=== PATIENT | male | born 1990 | race Two or more races ===

== ENCOUNTER 2024-08-15 14:04 | Emergency (ER) | payer MEDICAID, SELFPAY ==
[2024-08-15 14:06] VITALS: BMI 43.2
[2024-08-15 14:38] VITALS: BP 140/88; PULSE 93; RESP 16; TEMP 37; O2SAT 98
--- NOTE | 2024-08-15 14:59 | EDNOTE_ITS ---
<Statement entered by Isa Patrick MD - 08/26/24 19:23> As co-signing physician, I was present and available for consult prn. I concur with the plan and care as documented by the midlevel provider. ED Male Genitalurinary RME/HPI General Chief complaint: Urogenital-Male Stated complaint: Possible UTI Time Seen by Provider: 08/15/24 14:40 Arrival date/time: 08/15/24 14:04 This is a 33-year-old male that comes in with complaints of chunky urine last night. Patient reports that there was also some blood in his urine. Patient has some dysuria. Patient states he has only been with 1 sex partner. Patient denies any anal sex. 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 Related Data Home Medications ?Medication ?Instructions ?Recorded ?Confirmed clindamycin HCl 300 mg capsule 300 mg PO TID 07/01/19 07/01/19 hydrocodone 10 mg-acetaminophen 1 tab PO BID PRN Pain 07/01/19 07/01/19 325 mg tablet ([place]) Previous Rx's ?Medication ?Instructions ?Recorded albuterol sulfate 90 mcg/actuation 2 puff inhalation Q ID PRN 08/10/21 aerosol inhaler shortness of breath or wheez ing #8.5 grams azithromycin 250 mg tablet See Rx Instructions PO .COM PLEX #6 08/10/21 tabs ibuprofen 800 mg tablet 800 mg PO Q6H PRN pain #20 t abs 08/15/24 Allergies Allergy/AdvReac Type Severity Reaction Status Date / Time walnut Allergy Vomiting Verified 08/10/21 00:42 doxycycline AdvReac Mild NAUSEA,VOMI Verified 08/10/21 00:42 TING Review of Systems Review of Systems Systems Reviewed: All systems reviewed, normal except as documented Past Medical History Past Medical History NEUROLOGIC: Negative Neurological Disorders or Seizures CARDIAC: Negative Cardiac Disorders or Congestive Heart Failure RESPIRATORY: Negative Chronic Obstructive Pulmonary Disease (COPD) or Asthma GASTROINTESTINAL: Positive Gastrointestinal Disorders and Obesity; Negative Hepatitis GENITOURINARY: Negative Genitourinary Disorders or Renal Disease MUSCULOSKELETAL: Positive Musculoskeletal Disorders and Arthritis ENDOCRINE: Negative Endocrine Disorders, Diabetes Mellitus Type 1 or Diabetes Mellitus Type 2 HEMATOLOGIC: Positive Blood Disorders and Leukemia (2016 HOSP); Negative Sickle Cell Disease OTHER HISTORY: Positive Hospitalization ([facility] 2016), Chemotherapy (2016), MRSA ([facility]), Chicken Pox and Cancer ([facility]); Negative Autoimmune Disease, Shingles, Falls, Blood Transfusions, Blood Transfusion Reaction, Anesthesia Reactions, Radiation Therapy, Measles or Mumps Family History FAMILY HISTORY: Positive Family Cardiac Disorders (FATHER (CVA,MO,HTN)), Family Surgery (MOTHER) and Family Anesthesia Reaction (HARD TO BREATHE (MOTHER)); Negative Family Psychiatric Problems, Family Respiratory Disorders, Family Gastrointestinal Problems or Family Cancer Surgical History SURGICAL: Negative Cardiac Surgery or Abdominal Surgery Social History SMOKING STATUS: Current every day smoker Travel History EBOLA RISK: No ED Exam General General appearance: Present alert and in no apparent distress Head Head exam: Present atraumatic Eye Eye exam: Present normal appearance, PERRL and EOMI ENT ENT exam: Present normal exam, normal oropharynx and mucous membranes moist Neck Neck exam: Present normal inspection, full ROM and trachea midline Chest Chest inspection: Present normal inspection and symmetric chest wall rise Respiratory Respiratory exam: Present normal lung sounds bilaterally Cardiovascular Cardiovascular exam: Present regular rate, normal rhythm and normal heart sounds Abdominal Exam Abdominal exam: Present soft and normal bowel sounds Extremities Exam Extremities exam: Present normal inspection and full ROM Back Exam Back exam: Present normal inspection and full ROM Neurological Exam Neurological exam: Present alert, oriented X3 and CN II-XII intact Psychiatric Psychiatric exam: Present normal affect and normal mood Skin Skin exam: Present warm, dry, intact and normal color Course Quality Measures none Orders Category Date Time Status Chlamydia/GC/TV - PCR Stat Lab 08/15/24 15:05 Completed Urinalysis, C/S if Indicated Stat Lab 08/15/24 15:05 Completed Urine Culture Stat Lab 08/15/24 15:05 Completed Ketorolac Inj [Toradol Inj] Med 08/15/24 16:10 Discontinued 60 mg IM X1 ONE cefTRIAXone [Rocephin] 1,000 mg Med 08/15/24 16:11 Discontinued Lidocaine 1% 20 ml [Xylocaine 1% 20 ML] 2.1 ml IM X1 Vital Signs Vital signs: Vital Signs Temperature 98.6 F 08/15/24 14:38 Pulse Rate 93 08/15/24 14:38 Respiratory Rate 16 08/15/24 14:38 Blood Pressure 140/88 H 08/15/24 14:38 Pulse Oximetry (%) 98 08/15/24 14:38 Oxygen Delivery Method Room Air 08/15/24 14:38 Urogenital - Male MDM Narrative MDM Narrative:: Urine showed nitrites with white blood cells, leukocytes and a lot of red blood cells. I spoke to patient at length that he could also have a kidney stone. Will treat for UTI now. Will send for urine culture. Patient told to drink lots of fluids. Come back to the emergency room if symptoms change or worsen. Patient data External records reviewed:: [facility] previous records Clinical information provided by:: patient Social determinants that could affect healthcare access:: none Patient has the following chronic illnesses:: none How is presenting disease/condition affected by chronic disease/condition?: no chronic disease Evaluation data The following diagnostics were reviewed and interpreted by me:: lab results Lab and/or radiology exams considered but not ordered:: none Interpretation Summary: see note Medications / Prescriptions Medications or Prescriptions considered but not ordered:: none Medication administrations:: Medication Administration History Discontinued Medications Ceftriaxone Sodium 1,000 mg/ (Lidocaine HCl 2.1 ml) 0 mg IM X1 ONE Stop: 08/15/24 16:12 Last Admin: 08/15/24 16:24 Dose: 1,000 mg Documented By: DEMETRIO Comments: 2.1 ml lidocaine Ketorolac Tromethamine (Ketorolac Inj 60 Mg/2 Ml Vial) 60 mg IM X1 ONE Stop: 08/15/24 16:11 Last Admin: 08/15/24 16:24 Dose: 60 mg Documented By: DEMETRIO see [facility] Consultations Consultation(s) initiated? (list below): No Diagnosis Urogenital Male Differential Diagnosis: urinary tract infection, urethritis, epididymitis and other (kidney stone ) Most likely diagnosis given after review of the tests above:: uti Admission Indicated Admission indicated?: not indicated Admission Request Was there a request for admission?: No Disposition Plan Disposition Plan: Discharge Discharge Attestation Discharge Attestation: The patient and all family members were given an opportunity to ask questions and understood the discharge instructions. Discharge instructions specifically effects, indications for sooner follow up or return to the emergency department, and the expected course of current diagnosis. Patient condition: Stable Discharge Plan Plan Patient Disposition: HOME (Self Care) Patient condition on transfer: Stable Prescriptions/Referrals Prescriptions/Med Rec: New ibuprofen 800 mg tablet 800 mg PO Q6H PRN (Reason: pain) Qty: 20 0RF No Action clindamycin HCl 300 mg Capsule 300 mg PO TID hydrocodone-acetaminophen [[place]] 10-325 mg Tablet 1 tab PO BID PRN (Reason: Pain) azithromycin 250 mg tablet See Rx Instructions .ROUTE .COMPLEX Qty: 6 0RF Rx Instructions: For 250 mg dose pack: take 500 mg today (day 1), then 250 mg for 4 days (days 2-5) albuterol sulfate 90 mcg/actuation HFA aerosol inhaler 2 puff inhalation QID PRN (Reason: shortness of breath or wheezing) Qty: 8.5 0RF Problem List Clinical Impression: Hematuria, Acute UTI Patient/Caregiver Discharge Instructions Discharge Activity: activity as tolerated Education Materials: Urinary Tract Infections in Men, ED Hematuria Additional Instructions: Drink plenty of fluids. Follow-up with primary provider to get urine culture. Come back to the emergency room if symptoms change or worsen. Print Language: Uzbek Stand Alone Forms: Kitty Award Info., Patient Portal Info Letter PA/FORENSIC COMPUTER EXAMINER Supervising Physician PA/FORENSIC COMPUTER EXAMINER Supervising Physician: madonna
[2024-08-15 15:29] LABS: Collection Type, Urine Voided
[2024-08-15 15:38] LABS: Bacteria,Urine Rare; Bilirubin,Urine Negative (Negative); Blood,Urine 3+ (Negative); Color,Urine Drk-Yellow (Lt Yel-Yel); Glucose, Urine Negative (Negative); Ketones,Urine Negative (Negative); Leukocyte Esterase,Urine Positive (Negative); Nitrite,Urine Positive (Negative); Protein,Urine 1+ (Neg - Trace); RBC,Urine 929 /hpf (0-3); Squamous Epithelial Cell,Urine 1 /hpf (0-5); Urobilinogen,Urine Negative mg/dL (0.0-1.0); WBC,Urine 44 /hpf (0-5)
[2024-08-15 15:46] LABS: Clarity,Urine Hazy (Clear/Hazy); Culture Indicated,Urine Yes
[2024-08-15] MEDS: cefTRIAXone 1,000 MG, LIDOCAINE 1% 20 ML 2.1 ML IM (16:24)
[2024-08-15] MEDS: KETOROLAC INJ 60 MG/2 ML VIAL IM (16:24)
[2024-08-15 17:39] LABS: Chlamydia trachomatis PCR Negative (Not Detect); Neisseria Gonorrhoeae DNA PCR Negative (Not Detect); Trichomonas Negative (Negative)
== END 2024-08-15 16:34 | disposition home or self-care (01) ==
LOC: SERX 16:43
PROVIDERS: Nurse Practitioner Family; Emergency Provider Emergency Medicine
DX: N39.0 Urinary tract infection, site not specified (principal); R31.9 Hematuria, unspecified; F17.200 Nicotine dependence, unspecified, uncomplicated
CPT/HCPCS: 81001; 87077; 87086; 87186; 87491; 87591; 87661; 96372; 99283; J0696; J1885; J3490

== ENCOUNTER 2025-03-10 00:53 | Emergency (ER) | payer MEDICAID, SELFPAY ==
[2025-03-10 00:56] VITALS: BP 148/84; PULSE 114; RESP 20; TEMP 36.9; O2SAT 97; BMI 44.6
--- NOTE | 2025-03-10 00:59 | XR_ITS ---
Examination: Fingers, right hand fifth digit 3 views Technique: AP, oblique, lateral views right hand fifth digit. Exam date and time: March 10, 2025 0105 hours INDICATIONS: Patient fell today with injury to the hand fifth digit pain FINDINGS: Acute fracture traversing the proximal aspect proximal than exit digit with mild angulation at the fracture site IMPRESSION: Acute fracture proximal phalanx fifth digit
--- NOTE | 2025-03-10 01:00 | EDNOTE_ITS ---
Upper Extremity Injury RME/HPI General Chief Complaint: Fall Stated Complaint: INJURY TO PINKY RIGHT HAND Time Seen by Provider: 03/10/25 00:58 Arrival date/time: 03/10/25 00:53 34M with history of HS and drug use presents to ED with R pinky pain after trip and fall. Patient denies hitting head. Limitations: no limitations Related Data Home Medications ?Medication ?Instructions ?Recorded ?Confirmed clindamycin HCl 300 mg capsule 300 mg PO TID 07/01/19 07/01/19 hydrocodone 10 mg-acetaminophen 1 tab PO BID PRN Pain 07/01/19 07/01/19 325 mg tablet ([place]) Previous Rx's ?Medication ?Instructions ?Recorded albuterol sulfate 90 mcg/actuation 2 puff inhalation Q ID PRN 08/10/21 aerosol inhaler shortness of breath or wheez ing #8.5 grams azithromycin 250 mg tablet See Rx Instructions PO .COM PLEX #6 08/10/21 tabs ibuprofen 800 mg tablet 800 mg PO Q6H PRN pain #20 t abs 08/15/24 Allergies Allergy/AdvReac Type Severity Reaction Status Date / Time walnut Allergy Vomiting Verified 08/10/21 00:42 doxycycline AdvReac Mild NAUSEA,VOMI Verified 08/10/21 00:42 TING Review of Systems Review of Systems Systems Reviewed: All systems reviewed, normal except as documented Constitutional Constitutional: Reports system reviewed and no additional complaints, except as documented, Denies fever(s) and Denies headache(s) ENT Ears, Nose, Mouth, and Throat: Denies disequilibrium and Denies headache(s) Cardiovascular Cardiovascular: Reports system reviewed and no additional complaints, except as documented, Denies chest pain and Denies dyspnea Respiratory Respiratory: Reports system reviewed and no additional complaints, except as documented, Denies cough and Denies dyspnea Gastrointestinal Gastrointestinal: Reports system reviewed and no additional complaints, except as documented, Denies abdominal pain, Denies nausea and Denies vomiting Musculoskeletal Musculoskeletal: Reports as per HPI and Reports arthralgias Neurologic Neurologic: Reports system reviewed and no additional complaints, except as documented, Denies confusion, Denies disequilibrium and Denies headache(s) Psychiatric Psychiatric: Denies confusion Past Medical History Past Medical History NEUROLOGIC: Negative Neurological Disorders or Seizures CARDIAC: Negative Cardiac Disorders or Congestive Heart Failure RESPIRATORY: Negative Chronic Obstructive Pulmonary Disease (COPD) or Asthma GASTROINTESTINAL: Positive Gastrointestinal Disorders and Obesity; Negative Hepatitis GENITOURINARY: Negative Genitourinary Disorders or Renal Disease MUSCULOSKELETAL: Positive Musculoskeletal Disorders and Arthritis ENDOCRINE: Negative Endocrine Disorders, Diabetes Mellitus Type 1 or Diabetes Mellitus Type 2 HEMATOLOGIC: Positive Blood Disorders and Leukemia (2016 HOSP); Negative Sickle Cell Disease OTHER HISTORY: Positive Hospitalization ([facility] 2016), Chemotherapy (2016), MRSA ([facility]), Chicken Pox and Cancer ([facility]); Negative Autoimmune Disease, Shingles, Falls, Blood Transfusions, Blood Transfusion Reaction, Anesthesia Reactions, Radiation Therapy, Measles or Mumps Family History FAMILY HISTORY: Positive Family Cardiac Disorders (FATHER (CVA,CA,HTN)), Family Surgery (MOTHER) and Family Anesthesia Reaction (HARD TO BREATHE (MOTHER)); Negative Family Psychiatric Problems, Family Respiratory Disorders, Family Gastrointestinal Problems or Family Cancer Surgical History SURGICAL: Negative Cardiac Surgery or Abdominal Surgery Social History SMOKING STATUS: Light (< 1 pack/day) ED Exam General Limitations: Present no limitations General appearance: Present alert and in no apparent distress Head Head exam: Present atraumatic Eye Eye exam: Present normal appearance, PERRL and EOMI ENT ENT exam: Present normal exam, normal oropharynx and mucous membranes moist Neck Neck exam: Present normal inspection, full ROM and trachea midline Chest Chest inspection: Present normal inspection and symmetric chest wall rise Respiratory Respiratory exam: Present normal lung sounds bilaterally Cardiovascular Cardiovascular exam: Present regular rate, normal rhythm and normal heart sounds Abdominal Exam Abdominal exam: Present soft and normal bowel sounds Extremities Exam Extremities exam: Present full ROM Expanded Upper Extremity Exam Hand exam: Present full ROM (R pinky), tenderness and swelling Expanded Lower Extremity Exam Knee exam: Present full ROM and abrasion Back Exam Back exam: Present normal inspection and full ROM Neurological Exam Neurological exam: Present alert, oriented X3 and CN II-XII intact Psychiatric Psychiatric exam: Present normal affect and normal mood Skin Skin exam: Present warm, dry, intact and normal color Course Quality Measures none Orders Category Date Time Status Wound Care NOW Care 03/10/25 00:59 Active XR finger RT min 2V Stat Exams 03/10/25 00:59 Taken Vital Signs Vital signs: Vital Signs Temperature 98.5 F 03/10/25 00:56 Pulse Rate 114 H 03/10/25 00:56 Respiratory Rate 20 03/10/25 00:56 Blood Pressure 148/84 H 03/10/25 00:56 Pulse Oximetry (%) 97 03/10/25 00:56 Oxygen Delivery Method Room Air 03/10/25 00:56 O2 at 97% on RA and WNLs Extremity Injury MDM Narrative MDM Narrative:: 34M with history of HS and drug use presents to ED with R pinky pain after trip and fall. Patient denies hitting head. Physical exam reveals R pinky mild deformity. ROM mostly intact. Some mild abrasions on bilateral knees, but gait intact. Patient is afebrile, calm, and alert. Abrasions cleaned and bandaged. XR reveals proximal R pink fx with minimal rotation. Finger was realigned and finger splint/protector was placed. Environmental Sciences Professor given. Patient data External records reviewed:: [facility] previous records Clinical information provided by:: patient Social determinants that could affect healthcare access:: substance use Patient has the following chronic illnesses:: drug use and HS How is presenting disease/condition affected by chronic disease/condition?: exacerbated by Evaluation data The following diagnostics were reviewed and interpreted by me:: radiology exam(s) Lab and/or radiology exams considered but not ordered:: ordered Interpretation Summary: above Medications / Prescriptions Medications or Prescriptions considered but not ordered:: not ordered Medication administrations:: n/a Consultations Consultation(s) initiated? (list below): No Diagnosis Upper Extremity Injury Differential Diagnosis: sprain and strain of wrist, fracture of wrist, finger sprain, dislocation of finger, Colles' fracture, fracture of hand and other (skin abrasion) Most likely diagnosis given after review of the tests above:: skin abrasion and finger fx Admission Indicated Admission indicated?: not indicated Admission Request Was there a request for admission?: No Disposition Plan Disposition Plan: Discharge Discharge Attestation Discharge Attestation: The patient and all family members were given an opportunity to ask questions and understood the discharge instructions. Discharge instructions specifically effects, indications for sooner follow up or return to the emergency department, and the expected course of current diagnosis. Patient condition: Stable Discharge Plan Plan Patient Disposition: HOME (Self Care) Discharge Disposition comment: Stable Prescriptions/Referrals Prescriptions/Med Rec: No Action clindamycin HCl 300 mg Capsule 300 mg PO TID hydrocodone-acetaminophen [[place]] 10-325 mg Tablet 1 tab PO BID PRN (Reason: Pain) azithromycin 250 mg tablet See Rx Instructions .ROUTE .COMPLEX Qty: 6 0RF Rx Instructions: For 250 mg dose pack: take 500 mg today (day 1), then 250 mg for 4 days (days 2-5) albuterol sulfate 90 mcg/actuation HFA aerosol inhaler 2 puff inhalation QID PRN (Reason: shortness of breath or wheezing) Qty: 8.5 0RF ibuprofen 800 mg tablet 800 mg PO Q6H PRN (Reason: pain) Qty: 20 0RF Problem List Clinical Impression: Finger fracture, Abrasion of skin Patient/Caregiver Discharge Instructions Education Materials: ED Fracture, Finger, Closed Additional Instructions: Please follow-up with PCP within 24-48 hours and return immediately if symptoms worsen. Can see PCP for referral to ortho/hand surgeon. Print Language: Russian Stand Alone Forms: Patient Portal Info Letter ISIDORO/EMIGDIO Supervising Physician ISIDORO/EMIGDIO Supervising Physician: Dr. Qureshi
--- NOTE | 2025-03-10 01:05 | PC.NURSE ---
Cleaned Pts superficial wounds on right and left knees with wound spray, iodine scrub brush, and applied triple antibiotic ointment.
[2025-03-10 01:26] VITALS: RESP 18
== END 2025-03-10 01:26 | disposition home or self-care (01) ==
LOC: SERX 02:00
PROVIDERS: Emergency Provider Emergency Medicine
DX: S62.609A Fracture of unspecified phalanx of unspecified finger, initial encounter for closed fracture (principal); S62.616A Displaced fracture of proximal phalanx of right little finger, initial encounter for closed fracture; W01.10XA Fall on same level from slipping, tripping and stumbling with subsequent striking against unspecified object, initial encounter; S80.212A Abrasion, left knee, initial encounter; S80.211A Abrasion, right knee, initial encounter
CPT/HCPCS: 73140; 99284

== ENCOUNTER 2025-04-21 00:55 | Emergency (ER) | payer MEDICAID, SELFPAY ==
[2025-04-21 00:56] VITALS: BMI 44.6
[2025-04-21 01:41] VITALS: BP 154/94; PULSE 100; RESP 18; TEMP 36.7; O2SAT 98
--- NOTE | 2025-04-21 02:12 | EDNOTE_ITS ---
ED Skin Abcess FB-RME/HPI General Chief complaint: Skin/Abscess/Foreign Body Stated complaint: ABCESS ON COCCYX Time Seen by Provider: 04/21/25 02:01 Arrival date/time: 04/21/25 00:55 34M with history of HS presents to ED with recurrent pilonidal abscess. Patient just wants I&D and some meds. Limitations: no limitations Related Data Home Medications ?Medication ?Instructions ?Recorded ?Confirmed clindamycin HCl 300 mg capsule 300 mg PO TID 07/01/19 07/01/19 hydrocodone 10 mg-acetaminophen 1 tab PO BID PRN Pain 07/01/19 07/01/19 325 mg tablet ([facility]) Previous Rx's ?Medication ?Instructions ?Recorded albuterol sulfate 90 mcg/actuation 2 puff inhalation Q ID PRN 08/10/21 aerosol inhaler shortness of breath or wheez ing #8.5 grams azithromycin 250 mg tablet See Rx Instructions PO .COM PLEX #6 08/10/21 tabs ibuprofen 800 mg tablet 800 mg PO Q6H PRN pain #20 t abs 08/15/24 sulfamethoxazole 800 1 tab PO BID 7 days #14 tabs 04/21/25 mg-trimethoprim 160 mg tablet (Bactrim DS) Allergies Allergy/AdvReac Type Severity Reaction Status Date / Time walnut Allergy Vomiting Verified 04/21/25 00:56 doxycycline AdvReac Mild NAUSEA,VOMI Verified 04/21/25 00:56 TING Review of Systems Review of Systems Systems Reviewed: All systems reviewed, normal except as documented Integumentary/Breasts Skin/Breast: Reports as per HPI and Reports skin pain Past Medical History Past Medical History NEUROLOGIC: Negative Neurological Disorders or Seizures CARDIAC: Negative Cardiac Disorders or Congestive Heart Failure RESPIRATORY: Negative Chronic Obstructive Pulmonary Disease (COPD) or Asthma GASTROINTESTINAL: Positive Gastrointestinal Disorders and Obesity; Negative Hepatitis GENITOURINARY: Negative Genitourinary Disorders or Renal Disease MUSCULOSKELETAL: Positive Musculoskeletal Disorders and Arthritis ENDOCRINE: Negative Endocrine Disorders, Diabetes Mellitus Type 1 or Diabetes Mellitus Type 2 HEMATOLOGIC: Positive Blood Disorders and Leukemia (2016 HOSP); Negative Sickle Cell Disease OTHER HISTORY: Positive Hospitalization ([facility] 2016), Chemotherapy (2016), MRSA ([facility]), Chicken Pox and Cancer ([facility]); Negative Autoimmune Disease, Shingles, Falls, Blood Transfusions, Blood Transfusion Reaction, Anesthesia Reactions, Radiation Therapy, Measles or Mumps Family History FAMILY HISTORY: Positive Family Cardiac Disorders (FATHER (CVA,UT,HTN)), Family Surgery (MOTHER) and Family Anesthesia Reaction (HARD TO BREATHE (MOTHER)); Negative Family Psychiatric Problems, Family Respiratory Disorders, Family Gastrointestinal Problems or Family Cancer Surgical History SURGICAL: Negative Cardiac Surgery or Abdominal Surgery Social History SMOKING STATUS: Current every day smoker ED Exam General Limitations: Present no limitations General appearance: Present alert and in no apparent distress Head Head exam: Present atraumatic Neck Neck exam: Present normal inspection, full ROM and trachea midline Chest Chest inspection: Present normal inspection and symmetric chest wall rise Back Exam Back exam: Present full ROM and other (3 cm pilonidal abscess) Neurological Exam Neurological exam: Present alert and oriented X3 Psychiatric Psychiatric exam: Present normal affect and normal mood Skin Skin exam: Present warm, dry, intact and normal color Course Quality Measures none Orders Category Date Time Status Incision and Drainage Set Up X1 Care 04/21/25 02:01 Active Wound Care NOW Care 04/21/25 02:01 Active Trimethoprim/Sulfa 160/800 Ds [Bactrim Ds] Med 04/21/25 02:01 Discontinued 1 tab PO X1 ONE Vital Signs Vital signs: Vital Signs Temperature 98.1 F 04/21/25 01:41 Pulse Rate 100 04/21/25 01:41 Respiratory Rate 18 04/21/25 01:41 Blood Pressure 154/94 H 04/21/25 01:41 Pulse Oximetry (%) 98 04/21/25 01:41 Oxygen Delivery Method Room Air 04/21/25 01:41 O2 at 98% on RA and WNLs PROCEDURES: Abscess I/D Site: other (pilonidal) Sedation/analgesia: none Local Anesthetic: lidocaine 1% Amount of anesthesia used (mL): 10 Technique: other (already draining) Amount of fluid expressed (mL): 5 Irrigation: No Packing used?: iodoform Complications: pain and bleeding Skin / Abscess / Foreign Body MDM Narrative MDM Narrative:: 34M with history of HS presents to ED with recurrent pilonidal abscess. Patient just wants I&D and some meds. 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 Patient is afebrile, alert, but appears uncomfortable. I&D done. Wound packed. ABX given. Patient data External records reviewed:: [facility] previous records Clinical information provided by:: patient Social determinants that could affect healthcare access:: substance use Patient has the following chronic illnesses:: HS How is presenting disease/condition affected by chronic disease/condition?: caused by Evaluation data The following diagnostics were reviewed and interpreted by me:: other (specify) (none) Lab and/or radiology exams considered but not ordered:: not ordered Interpretation Summary: n/a Medications / Prescriptions Medications or Prescriptions considered but not ordered:: ordered Medication administrations:: Medication Administration History Discontinued Medications Trimethoprim/Sulfamethoxazole (Trimethoprim/Sulfa 160/800 Ds Tablet) 1 tab PO X1 ONE Stop: 04/21/25 02:02 above Consultations Consultation(s) initiated? (list below): No Diagnosis Skin/Abscess Differential Diagnosis: abscess of skin or subcutaneous tissue, viral exanthem, dermatophytosis, urticaria, herpes zoster, allergic reaction to drug, cellulitis, eczema, insect bites, impetigo, contact dermatitis and other (pilonidal abscess) Most likely diagnosis given after review of the tests above:: pilonidal abscess Admission Indicated Admission indicated?: not indicated Admission Request Was there a request for admission?: No Disposition Plan Disposition Plan: Discharge Discharge Attestation Discharge Attestation: The patient and all family members were given an opportunity to ask questions and understood the discharge instructions. Discharge instructions specifically effects, indications for sooner follow up or return to the emergency department, and the expected course of current diagnosis. Patient condition: Stable Discharge Plan Plan Patient Disposition: HOME (Self Care) Discharge Disposition comment: Stable Prescriptions/Referrals Prescriptions/Med Rec: New sulfamethoxazole-trimethoprim [Bactrim DS] 800-160 mg tablet 1 tab PO BID 7 Days Qty: 14 0RF No Action clindamycin HCl 300 mg Capsule 300 mg PO TID hydrocodone-acetaminophen [[facility]] 10-325 mg Tablet 1 tab PO BID PRN (Reason: Pain) azithromycin 250 mg tablet See Rx Instructions .ROUTE .COMPLEX Qty: 6 0RF Rx Instructions: For 250 mg dose pack: take 500 mg today (day 1), then 250 mg for 4 days (days 2-5) albuterol sulfate 90 mcg/actuation HFA aerosol inhaler 2 puff inhalation QID PRN (Reason: shortness of breath or wheezing) Qty: 8.5 0RF ibuprofen 800 mg tablet 800 mg PO Q6H PRN (Reason: pain) Qty: 20 0RF Problem List Clinical Impression: Pilonidal abscess Patient/Caregiver Discharge Instructions Education Materials: ED Cyst Pilonidal Infected IandD Additional Instructions: Please follow-up with PCP within 24-48 hours and return immediately if symptoms worsen. Have packing removed in 2-3 days. Print Language: Portuguese Stand Alone Forms: Patient Portal Info Letter PA/EMIGDIO Supervising Physician ISIDORO/EMIGDIO Supervising Physician: Dr. Little
[2025-04-21] MEDS: TRIMETHOPRIM/SULFA 160/800 DS TABLET 1 TAB PO (03:02)
[2025-04-21 03:05] VITALS: BP 137/88; PULSE 101; RESP 18; TEMP 36.9; O2SAT 96
== END 2025-04-21 03:08 | disposition home or self-care (01) ==
LOC: SERX 02:54
PROVIDERS: Emergency Provider Emergency Medicine
DX: L05.01 Pilonidal cyst with abscess (principal)
CPT/HCPCS: 10080; 99283; A9270